=== PATIENT | female | born 1980 | race Caucasian/White ===

== ENCOUNTER 2021-07-13 09:03 | Day surgery (SDC) | payer OTHER ==
[2021-07-09 13:47] VITALS: BMI 25.3
--- NOTE | 2021-07-12 10:01 | HP ---
HISTORY AND PHYSICAL CHIEF COMPLAINT: Right shoulder pain. HISTORY OF PRESENT ILLNESS: The patient is a 41-year-old [id number] female who presents with right shoulder pain and stiffness for the past 6 months. She denies any specific injury. She notes limited range of motion in addition to pain at night. She has been taking ibuprofen and has been trying to stretch it out on her own. PAST MEDICAL HISTORY: Significant for type 1 diabetes. PAST SURGICAL HISTORY: Negative. CURRENT MEDICATIONS: Ibuprofen and insulin pump. ALLERGIES: SHE DENIES DRUG ALLERGIES. FAMILY HISTORY: Negative. SOCIAL HISTORY: Significant for one pack per day tobacco use. REVIEW OF SYSTEMS: Sixteen-point review of systems otherwise reviewed and is noncontributory. PHYSICAL EXAMINATION: On examination, patient is approximately 5 feet 3 inches, 145 pounds of mesomorphic habitus. HEENT exam is nonfocal. Neck is supple. On the right shoulder, she is tender about the anterior subacromial space. Active range of motion: Forward elevation 80 degrees, external rotation with arm to side 15 degrees, internal rotation to L3. Passively I am able to forward elevate her to 90 degrees. Impingement test, Neer test and Speed's test are positive. Her distal neurovascular exam appears intact in the right upper extremity. X-rays of the right shoulder obtained in the office show a type 2 acromion. The humeral head to acromial distance appears to be maintained. IMPRESSION: 1. Right shoulder adhesive capsulitis. 2. Insulin-dependent diabetes. RECOMMENDATIONS: I talked to the patient at length regarding her condition along with treatment options. At this point she opts to proceed with manipulation under anesthesia. Risks and benefits were discussed at length in layman's terms. We will likely perform that as an outpatient procedure utilizing IV sedation. MMODL / IJN: [id number] /
[~2021-07-13 09:03] MED LIST: LIDOCAINE 1% (10MG/ML) FOR IV START INTRADERMA PRN; Pre Op ABX Message 1 EACH MISC MISCELLANE ONE
[2021-07-13 09:38] LABS: Glucose,Whole Blood 88 mg/dL (75-99)
[2021-07-13 09:41] VITALS: TEMP 98.6
[2021-07-13] MEDS: LACTATED RINGERS 1,000 ML IV SCH ×3 (09:41→11:12)
[2021-07-13 09:56] LABS: Glucose,Whole Blood 98 mg/dL (75-99)
[2021-07-13] MEDS ORDERED: PROPOFOL 10 MG/ML 20 ML VIAL IV ONE (10:15)
[2021-07-13] MEDS ORDERED: KETOROLAC 15 MG/ML 1 ML VIAL ONE (10:15)
--- NOTE | 2021-07-13 10:33 | P.OP ---
Date of Procedure: 07/13/21 Preoperative Diagnosis: Right shoulder adhesive capsulitis Postoperative Diagnosis: Same Procedure(s) Performed: Manipulation under anesthesia right shoulder Anesthesia: MAC Surgeon: Yasmany Leong Estimated Blood Loss (ml): 0 Pathology: none sent Condition: stable Disposition: PACU Indications for Procedure: The patient's 41-year-old female whose parents with a diabetic presents with progressive right shoulder pain and stiffness despite conservative measures. Clinically she is noted of evidence of significant adhesive capsulitis. A discussion the risks and benefits of manipulation under anesthesia was made with patient. She opted to proceed. Risks of this procedure to include fracture, tendon rupture, possible recurrence of stiffness and need for subsequent procedures was discussed. Informed consent was obtained. Operative Findings: As below Description of Procedure: The patient was brought to the recovery room, and after induction of IV sedation I then gently manipulated her right shoulder. First with the arm at the side obtaining full external rotation. Moderate adhesions were encountered. I then obtained full forward elevation. Again there were moderate adhesions. She was then monitored until fully awake. There were no complications. There was no blood loss.
[2021-07-13] MEDS: HYDROmorphone 0.5 MG/0.5 ML SYRINGE IVP PRN ×3 (10:34→10:44)
[2021-07-13] MEDS ORDERED: diphenhydrAMINE 50 MG/ML 1 ML VIAL ONE (10:36)
[2021-07-13] MEDS ORDERED: diphenhydrAMINE 50 MG/ML 1 ML VIAL IVP ONE (10:39)
[2021-07-13] MEDS ORDERED: MIDAZOLAM 2 MG/2 ML VIAL IVP ONE ×2 (10:49→10:54)
[2021-07-13] MEDS ORDERED: fentaNYL (PF) 50 MCG/ML 2 ML AMP IVP ONE (11:01)
[2021-07-13 11:37] VITALS: RESP 18
[2021-07-13 11:41] LABS: Glucose,Whole Blood 130 mg/dL (75-99)
[2021-07-13 12:02] VITALS: BP 149/63; PULSE 63
== END 2021-07-13 12:15 | disposition home or self-care (01) ==
LOC: OR 09:03
PROVIDERS: ATTEND Orthopaedic Surgery
DX: M75.01 Adhesive capsulitis of right shoulder (principal); E11.9 Type 2 diabetes mellitus without complications; Z79.4 Long term (current) use of insulin; F17.200 Nicotine dependence, unspecified, uncomplicated
CPT/HCPCS: 23700; 81025; J2250; J1200; J3010; J1885; J2704; J1170

== ENCOUNTER → 2022-03-07 | Outpatient (CLI) | payer OTHER ==
--- NOTE | 2022-03-07 18:57 | MR ---
EXAMINATION TYPE: MR cervical spine wo con DATE OF EXAM: 03/07/2022 COMPARISON: Radiograph 11/25/2021 HISTORY: 42-year-old female M54.2, neck and shoulder pain through both arms to elbow. CERVICALGIA TECHNIQUE: Multiplanar, multisequence images of the cervical spine were acquired without contrast. FINDINGS: High signal intensity focus within the left T1 posterior vertebral body, probable small hemangioma. Straightening of the normal cervical lordosis but with preserved alignment. No craniocervical junction abnormalities, predental space widening, or prevertebral soft tissue swell ing. Mild multilevel degenerative disc disease with very mild disc desiccation. Posterior disc bulges from C4 through C7 levels, largest at C6-C7. At C6-C7, the posterior disc bulge impresses on the ventral thecal sac causing mild spinal canal narr owing but no abutment or flattening of the cervical cord. No significant spinal canal stenosis. Normal course, caliber, and signal intensity of the cervical sp inal cord. Scattered mild uncovertebral joint arthropathy is noted. No significant neural foraminal narrowing identified on either side. IMPRESSION: 1. Mild multilevel degenerative disc disease and mild uncovertebral joint arthropathy. 2. Mild posterior disc bulges mid and lower cervical spine. This contribute to an overall mild spinal canal narrowing at C6/C7 but without any cord abutment or cord flattening. No significant spinal can al stenosis. 3. Straightening of the normal cervical lordosis could be positional or due to muscle spasm. 4. No significant neural foraminal stenosis seen.
== END | disposition home or self-care (01) ==
LOC: RADMRIMAIN 10:48
PROVIDERS: ATTEND Nurse Practitioner Family
DX: M50.31 Other cervical disc degeneration, high cervical region (principal); M99.71 Connective tissue and disc stenosis of intervertebral foramina of cervical region
CPT/HCPCS: 72141